=== PATIENT | female | born 1970 | race Caucasian/White ===

== ENCOUNTER 2016-07-25 18:35 | Emergency (ER) | payer MEDICAID ==
[~2016-07-25] VITALS: Ht 167.6 cm; Wt 82.7 kg
[2016-07-25 18:40] VITALS: TEMP 97.9
[2016-07-25] MEDS ORDERED: MOTRIN 200200 MG/TAB (18:45)
[2016-07-25 19:21] LABS: BASO # 0.1 (0.0-0.2); BASO % 1.1 % (0.0-2.0); EOS # 0.3 (0.0-0.7); GRAN # 5.9 (1.4-6.5); GRAN % 55.6 % (42.2-75.2); HEMATOCRIT 40.7 % (37.0-47.0); HEMOGLOBIN 13.5 g/dl (12.5-16.0); LYMPH # 3.6 (1.2-3.4); LYMPH % 33.6 % (20.0-51.0); MEAN CELL VOLUME 85 fl (80.0-100.0); MEAN CORPUSCULAR HEMOGLOBIN 28 pg (27.0-31.0); MEAN CORPUSCULAR HGB CONC 33 g/dl (33.0-37.0); MEAN PLATELET VOLUME 10.2 fl (7.4-10.4); MONO # 0.6 (0.1-0.6); PLATELET COUNT 317 K/mm3 (130-400); RED BLOOD COUNT 4.79 M/mm3 (4.10-5.30); REDCELL DISTRIBUTION WIDTH-CV 12.6 % (11.5-14.5); WHITE BLOOD COUNT 10.6 K/mm3 (4.8-10.8)
[2016-07-25 19:31] LABS: ADJUSTED CALCIUM 9.4 mg/dL (8.4-10.2); BILIRUBIN,TOTAL 0.6 mg/dL (0.0-1.0); CALCIUM 9.4 mg/dL (8.4-10.2); CREATININE, serum 0.76 mg/dL (0.52-1.25); POTASSIUM 4.2 mmol/L (3.4-5.0); TOTAL PROTEIN 7.4 gm/dL (6.4-8.2)
[2016-07-25 19:40] LABS: INFLUENZA B NEGATIVE
[2016-07-25 19:44] LABS: PH 6 (5-8); SQUAMOUS EPITHELIAL 0-2 /hpf; URINE APPEARANCE Clear; URINE BACTERIA Rare /hpf; URINE BILIRUBIN Negative (NEGATIVE); URINE BLOOD Negative (NEGATIVE); URINE COLOR Yellow; URINE GLUCOSE Negative (NEGATIVE); URINE KETONE Negative (NEGATIVE); URINE RBC 0-2 /hpf; URINE UROBILINOGEN Negative (NEGATIVE); URINE WBC 0-2 /hpf
[2016-07-25] MEDS ORDERED: NORCO 325 MG-51 TAB PO (20:00)
[2016-07-25 20:28] VITALS: BP 141/79; PULSE 86
== END 2016-07-25 20:28 | disposition home or self-care (01) ==
LOC: COL.ER 18:35
PROVIDERS: Emergency Medicine
DX: B34.9 Viral infection, unspecified (principal); M54.6 Pain in thoracic spine; R05 Cough; R09.89 Other specified symptoms and signs involving the circulatory and respiratory systems; F17.210 Nicotine dependence, cigarettes, uncomplicated

== ENCOUNTER → 2017-03-07 | Outpatient (CLI) | payer MEDICAID ==
[~2017-03-07] MED LIST: MOTRIN 200200 MG/TAB; NORCO 325 MG-51 TAB PO
== END ==
LOC: MHCPAIN 10:41
DX: G89.29 Other chronic pain (principal); M47.27 Other spondylosis with radiculopathy, lumbosacral region; M53.3 Sacrococcygeal disorders, not elsewhere classified; M96.1 Postlaminectomy syndrome, not elsewhere classified
CPT/HCPCS: G0463

== ENCOUNTER → 2017-04-20 | Outpatient (CLI) | payer MEDICAID | LOC: MHCPAIN 08:52 | DX: M51.16 Intervertebral disc disorders with radiculopathy, lumbar region (principal); M96.1 Postlaminectomy syndrome, not elsewhere classified; Z98.1 Arthrodesis status | CPT/HCPCS: J1040; Q9967 ==

== ENCOUNTER → 2017-05-05 | Outpatient (CLI) | payer MEDICAID | LOC: MHCPAIN 09:42 | DX: G89.29 Other chronic pain (principal); M47.27 Other spondylosis with radiculopathy, lumbosacral region; M53.3 Sacrococcygeal disorders, not elsewhere classified; M96.1 Postlaminectomy syndrome, not elsewhere classified; F17.210 Nicotine dependence, cigarettes, uncomplicated | CPT/HCPCS: G0463 ==

== ENCOUNTER 2017-07-10 09:11 | Outpatient (CLI) | payer MEDICAID ==
[~2017-07-10] VITALS: Ht 167.6 cm; Wt 80.6 kg
[2017-07-10] MEDS ORDERED: SEROQUEL 1100 MG/TAB PO (09:22)
[2017-07-10] MEDS ORDERED: NEURONTIN800 MG/TAB PO (09:22)
[2017-07-10] MEDS ORDERED: CELEXA 20MG20 MG/TAB PO (09:22)
[2017-07-10] MEDS ORDERED: TOPAMAX 100MG100 M1 PO (09:23)
[2017-07-10] MEDS ORDERED: NORCO 325 MG-7.1 TAB PO (09:23)
[2017-07-10] MEDS ORDERED: FLEXERIL 1010 MG/TAB PO (09:24)
[2017-07-10] MEDS ORDERED: MOBIC15 MG PO (09:25)
[2017-07-10 09:26] VITALS: BP 124/88; PULSE 75
[2017-07-10] MEDS ORDERED: AMBIEN 10MG10 MG PO (09:26)
[2017-07-10 10:15] VITALS: BP 133/88; PULSE 67
[2017-07-10 10:20] VITALS: BP 133/88; PULSE 67
[2017-07-10 10:45] VITALS: BP 133/88; PULSE 58
[2017-07-10 10:51] LABS: GLUCOSE,CSF 59 mg/dL (40-70); TOTAL PROTEIN,CSF 61 mg/dL (15-45)
[2017-07-10 11:19] VITALS: BP 130/83; PULSE 60
[2017-07-10 11:44] VITALS: BP 138/82; PULSE 61
[2017-07-10 13:09] LABS: CSF APPEARANCE CLEAR; CSF COLOR COLORLESS; CSF RBC 187 /mm3 (0-0)
[2017-07-10 13:11] LABS: CSF MONONUCLEAR 100 % (70-100); CSF POLYMORPHONUCLEAR 0 % (0-6)
== END 2017-07-10 11:46 | disposition home or self-care (01) ==
LOC: COL.RAD 09:11
PROVIDERS: Psychiatry & Neurology Neurology
DX: G37.9 Demyelinating disease of central nervous system, unspecified (principal)

== ENCOUNTER 2018-10-06 14:17 | Emergency (ER) | payer OTHER ==
[~2018-10-06] VITALS: Ht 167.6 cm; Wt 95.9 kg
[~2018-10-06 14:17] MED LIST changes: +AMBIEN 10MG10 MG PO; +CELEXA 20MG20 MG/TAB PO; +FLEXERIL 1010 MG/TAB PO; +MOBIC15 MG PO; +NEURONTIN800 MG/TAB PO; +NORCO 325 MG-7.1 TAB PO; +SEROQUEL 1100 MG/TAB PO; +TOPAMAX 100MG100 M1 PO
[2018-10-06 14:23] VITALS: BP 129/76
[2018-10-06] MEDS ORDERED: XANAX 1MG1 MG PO (14:37)
[2018-10-06] MEDS ORDERED: SYNTHROID0.125 MG/T PO (14:37)
[2018-10-06] MEDS ORDERED: ABILIFY5 MG PO (14:39)
[2018-10-06] MEDS ORDERED: PROZAC40 MG PO (14:39)
[2018-10-06] MEDS ORDERED: FLONASE NASAL S16 GM NAS (14:40)
[2018-10-06 15:40] VITALS: PULSE 84; TEMP 97.6
== END 2018-10-06 15:39 | disposition home or self-care (01) ==
LOC: COL.ER 14:17
DX: M54.5 Low back pain (principal); F32.9 Major depressive disorder, single episode, unspecified; G89.29 Other chronic pain; F17.210 Nicotine dependence, cigarettes, uncomplicated; W17.89XA Other fall from one level to another, initial encounter; Y92.009 Unspecified place in unspecified non-institutional (private) residence as the place of occurrence of the external cause
CPT/HCPCS: J1885; J3010